=== PATIENT | male | born 1985 | race Caucasian/White ===

== ENCOUNTER 2016-12-14 10:08 | Emergency (ER) | payer MEDICAID ==
[~2016-12-14] VITALS: Ht 182.9 cm; Wt 96.2 kg
[2016-12-14 10:16] VITALS: BP 118/69; PULSE 75; RESP 16; TEMP 98.5; O2SAT 97
[2016-12-14] MEDS ORDERED: TETANUS/DIPHTHERIA TOXOID ADULT 0.5 ML VIAL IM ONE (10:30)
[2016-12-14] MEDS ORDERED: LIDOCAINE HCL 2% 50 ML VIAL INFIL ONE (10:30)
--- NOTE | 2016-12-14 10:38 | PD ---
HPI Chief Complaint: Laceration/Skin Injury Time Seen by Provider: 10:16 Travel History International Travel<30 days: No Contact w/Intl Traveler<30days: No Traveled to known affect area: No History of Present Illness HPI The patient is a 31-year-old male who presents emergency department for laceration to the second digit of the left hand. The patient was using electric saw her earlier today when he accidentally cut himself on the second digit of the left hand. The patient is right-hand dominant. The patient states the laceration is located over the radial aspect of the second digit left hand and extends to the distal tip just under the fingernail with some missing tissue. The laceration bled initially but stopped with direct pressure. The patient cannot recall his last tetanus shot, thinks he may have had it in [place] several years ago, but does not know the exact date of his last tetanus shot. He denies any numbness or tingling the affected digit and is able flex and extend it. Symptoms are mild to moderate, exacerbated after he accidentally cut himself electric saw, and the bleeding was controlled with direct pressure. PFSH Past Medical History Medical History: Denies Significant Hx Hx Anticoagulant Therapy: No Diminished Hearing: No Tetanus Vaccination: < 5 Years Past Surgical History Surgical History: No Previous Surgery Social History Alcohol Use: No Tobacco Use: Yes (1 PPD) Substance Use: No Allergies-Medications (Allergen,Severity, Reaction): Coded Allergies: No Known Allergies (Unverified , 12/14/16) Reported Meds & Prescriptions Reported Meds & Active Scripts Active No Active Prescriptions or Reported Medications Review of Systems Except as stated in HPI: all other systems reviewed are Neg Gastrointestinal: No: Nausea, Vomiting Musculoskeletal: Positive: Pain Skin: Positive Other (as noted in history present illness) Neurologic: No: Paresthesia, Sensory Disturbance Physical Exam Narrative GENERAL: Awake, alert, pleasant 31-year-old male who appears his stated age and is in no acute respiratory distress. SKIN: Focused skin assessment warm/dry. Patient has a 3 cm laceration to the radial aspect of the second digit extending from the distal interphalangeal joint to the distal tip, just under the nail, with a small amount of missing tissue. HEAD: Atraumatic. Normocephalic. EYES: Pupils equal and round. No scleral icterus. No injection or drainage. ENT: No nasal bleeding or discharge. Mucous membranes pink and moist. NECK: Trachea midline. No JVD. MUSCULOSKELETAL: 3 similar laceration on the radial aspect of the second digit extending from the disorder for altered joint to the distal tip, just under the nail, small amount of missing tissue. Patient is able flex at the MCP, PIP, and DIP. Tenderness noted over the distal aspect. The patient also had a 2 cm transverse laceration of volar aspect of the second digit overlying the distal phalanx with no visible tendon involvement. NEUROLOGICAL: Awake and alert. No obvious cranial nerve deficits. Motor grossly within normal limits. Normal speech. Sensation is intact of the distal aspect of the second digit and hypersensitive over the laceration. Data Data Last Documented VS Vital Signs Date Time Temp Pulse Resp B/P Pulse Ox O2 Delivery O2 Flow Rate FiO2 12/14/16 10:16 98.5 75 16 118/69 97 Orders Lidocaine 2% Inj (Xylocaine 2% Inj) (12/14/16 10:30) Tetanus/Diphtheria Tox Adult (Tetanus/Di (12/14/16 10:30) Finger ([id number]) (12/14/16 ) MDM Medical Decision Making Medical Screen Exam Complete: Yes Emergency Medical Condition: Yes Medical Record Reviewed: Yes Interpretation(s) X-ray reveals soft tissue injury, no evidence of fracture. Last Impressions Finger X-Ray 12/14/16 0000 Signed Impressions: Service Date/Time: December 10:25 - CONCLUSION: Soft tissue defect involving the second finger. Otherwise, unremarkable exam. Jordan Hart Jr., MD Differential Diagnosis Differential diagnoses includes laceration, avulsion injury, abrasion, open fracture, subungual hematoma. Narrative Course The patient had a digital block of the second digit on the left hand with 2% lidocaine with a 27-gauge needle. X-ray of the second digit, left hand, was obtained. X-ray reveals soft tissue injury, no evidence of fracture. The patient's laceration is complex, the laceration had to be anchored through the nail and he was admission missing tissue. The second laceration was closed in a single layer fashion. The patient's laceration was cleaned, Polysporin was applied and a splint was applied. I discussed the patient with the on-call hand surgeon, Dr. Saravia, who will see him in the office. Procedures Procedure Narrative LACERATION LOCATION: Second digit left hand LENGTH: 3 cm NUMBER OF STITCHES/ARCHIE: 8 REPAIR: The area of the laceration was prepped with Betadine and sterilely draped. Digital block was performed with 2% lidocaine. The wound was copiously irrigated and explored without evidence of foreign body, tendon injury or neurovascular injury. The wound was closed using 4-0 nylon. This was a single layer repair. A sterile dressing was applied. The patient was advised to keep the dressing clean and dry. Patient tolerated the procedure well. LACERATION LOCATION: Second digit left hand LENGTH: 2 cm NUMBER OF STITCHES/ARCHIE: 2 REPAIR: The area of the laceration was prepped with Betadine and sterilely draped. Digital block with 2% lidocaine. The wound was copiously irrigated and explored without evidence of foreign body, tendon injury or neurovascular injury. The wound was closed using 4-0 nylon. This was a single layer repair. A sterile dressing was applied. The patient was advised to keep the dressing clean and dry. Patient tolerated the procedure well. Diagnosis Primary Impression: Laceration of finger of left hand with complication Qualified Code: S61.412A - Laceration of finger of left hand with complication , initial encounter Referrals: Kanchan Saravia MD call for appointment Patient Instructions: General Instructions Additional Instructions: Follow-up with Dr. Saravia, call the office for an appointment. Keep the area clean and dry. Splint as directed. Keflex as directed. Motrin as directed. Monitor for signs of infection. Med/Other Pt SpecificInfo: Prescription(s) given Scripts Ibuprofen 600 Mg Yfi180 Mg PO Q6H PRN (Pain/Inflammation) #20 TAB Ref 0 Prov:Roberth Cunningham MD 12/14/16 Cephalexin (Keflex)500 Mg Fit202 Mg PO Q6H 7 Days Ref 0 Prov:Roberth Cunningham MD 12/14/16 Disposition: 01 DISCHARGE HOME Condition: Stable Roberth Cunningham MD December 14, 2016 10:38
--- NOTE | 2016-12-14 11:03 | RADHPO ---
EXAM DATE/TIME: 12/14/2016 10:25 [facility] COMPARISON: No previous studies available for comparison. INDICATIONS : Laceration to distal anterior aspect of left second finger. MEDICAL HISTORY : Hepatitis C. SURGICAL HISTORY : None. ENCOUNTER: Initial ACUITY: 1 day PAIN SCORE: 8/10 LOCATION: Left distal second digit FINDINGS: Examination of the second digit of the left hand demonstrates no evidence of fracture or dislocation. No radiopaque foreign bodies are seen. A soft tissue defect is seen involving the tip of the second finger. CONCLUSION: Soft tissue defect involving the second finger. Otherwise, unremarkable exam. Jordan Hart Jr., MD on December 14, 2016 at 11:00 Board Certified Radiologist. This report was verified electronically.
[2016-12-14] MEDS ORDERED: CEPH-460 PO (11:39)
[2016-12-14] MEDS ORDERED: IBUP-232 PO (11:39)
== END 2016-12-14 12:05 | disposition home or self-care (01) ==
LOC: PHEFT 10:08
DX: S61.211A Laceration without foreign body of left index finger without damage to nail, initial encounter (principal); Z23 Encounter for immunization; F17.210 Nicotine dependence, cigarettes, uncomplicated; W29.8XXA Contact with other powered hand tools and household machinery, initial encounter
CPT/HCPCS: 12002; 73140; 90471; 90714